=== PATIENT | female | born 1980 | race Caucasian/White ===

== ENCOUNTER 2017-12-16 12:30 | Emergency (ER) | payer OTHER ==
[~2017-12-16] VITALS: Ht 167.6 cm; Wt 104.3 kg
[~2017-12-16 12:30] MED LIST: BENTYL10 MG PO; LEXAPRO 10 MG T10 MG; NORCO 5-325 TA1 EACH PO; TORADOL 10 MG T10 MG PO; WELLBUTRIN SR150 MG; ZOFRAN ODT4 MG PO; ZOMIG ZMT2.5 MG PO
[2017-12-16] MEDS ORDERED: LEXAPRO 10 MG T10 MG PO (12:38)
[2017-12-16] MEDS ORDERED: NEURONTIN 300M300 M2 PO (12:39)
[2017-12-16 12:56] LABS: ABSOLUTE BASOPHILS 0.1 thou/uL (0.0-0.2); ABSOLUTE EOSINOPHILS 0.2 thou/uL (0.0-0.7); ABSOLUTE LYMPHOCYTES 2.5 thou/uL (0.8-5.3); ABSOLUTE MONOCYTES 0.6 thou/uL (0.0-1.2); ABSOLUTE NEUTROPHILS 4.6 thou/uL (1.6-8.1); BASOPHILS 1.3 %; EOSINOPHILS 2.3 %; HEMATOCRIT 37.1 % (37.0-47.0); HEMOGLOBIN 12.4 gm/dL (12.0-15.0); LYMPHOCYTES 31.3 %; MCHC 33.6 g/dL (28.0-37.0); MCV 95.4 fL (80.0-100.0); MONOCYTES 7.5 %; NUCLEATED RBCS 0 /100WBC; PLATELET COUNT* 235 thou/uL (150-400); POLYS 57.6 %; RBC 3.89 mil/uL (4.20-5.00); RDW-CV 12.6 % (10.5-14.5); WBC 8.1 thou/uL (4.0-11.0)
[2017-12-16 13:04] LABS: ANION GAP 5 mmol/L (7-16); BUN 11 mg/dL (7-18); CALCIUM 8.4 mg/dL (8.5-10.1); CHLORIDE 106 mmol/L (98-107); CO2 30 mmol/L (21-32); CREATININE 1.1 mg/dL (0.6-1.3); GLUCOSE 85 mg/dL (70-99); SODIUM 141 mmol/L (136-145)
[2017-12-16 13:07] LABS: PROTIME 10.3 Seconds (9.20-11.50)
[2017-12-16 13:23] LABS: ALBUMIN 3.5 g/dL (3.4-5.0); ALKALINE PHOSPHATASE 74 U/L (46-116); CK-MB MASS 0.5 ng/mL (<0.5-3.6); LIPASE 115 U/L (73-393); MAGNESIUM 1.7 mg/dL (1.8-2.4); NT-PRO BRAIN NAT PEPTIDE 55 pg/mL (<300); SGOT 20 U/L (15-37); SGPT 28 U/L (30-65); TOTAL BILIRUBIN 0.4 mg/dL (<0.1-1.0); TOTAL PROTEIN 7.5 g/dL (6.4-8.2); TROPONIN-I LEVEL <0.06 ng/mL (<0.06)
[2017-12-16 13:59] VITALS: BP 104/62
--- NOTE | 2017-12-16 18:21 | EKG ---
[place] [address] ELECTROCARDIOGRAM REPORT Name: VANESSA MAJANO Room: [facility]#: [id number] Admission: 12/16/17 Attend Phys: Discharge: 12/16/17 Date of : 78 Report #: [id number] THIS REPORT FOR: //name// [facility] ED Test Date: 2017-12-16 Test Time: 12:38:51 Pat Name: VANESSA MAJANO Department: Room: Gender: F [employer] Transportation Clerk: : 1980 Requested By: Jordan Chisholm Order Number: [id number] MD: Sam Crocker Measurements Intervals [place] Rate: 52 P: 40 AL: 112 QRS: 38 QRSD: 99 T: 24 QT: 403 QTc: 375 Interpretive Statements Sinus bradycardia Borderline short AL interval Low voltage, precordial leads Baseline wander in lead(s) I Compared to ECG 12/11/2012 22:40:16 rate slowed Electronically Signed On 12-16-2017 18:21:33 CDT by Sam Crocker [email or web address] <ELECTRONICALLY SIGNED> By: Sam Crocker MD, [facility] 12/16/17 1821 1238 1238 Sam Crocker MD, [facility] /EPI
== END 2017-12-16 14:00 | disposition home or self-care (01) ==
LOC: M.ERS 12:30
PROVIDERS: Family Medicine
DX: R07.89 Other chest pain (principal); F41.9 Anxiety disorder, unspecified; Z88.0 Allergy status to penicillin; Z88.1 Allergy status to other antibiotic agents; Z90.49 Acquired absence of other specified parts of digestive tract

== ENCOUNTER → 2019-08-19 | Day surgery (SDC) | payer BC ==
[~2019-08-19] MED LIST changes: +IBUPROFEN 800800 M1 PO; +LEXAPRO 10 MG T10 MG PO; +LEXAPRO20 MG PO; +NEURONTIN 300M300 M2 PO; +NORCO 5-325 TA1 EAC1 PO; +ZOMIG2.5 MG PO; +ZYRTEC10 M2 PO
--- NOTE | ~2019-08-19 | OP ---
[facility] [address] [place] [address] OPERATIVE REPORT Name: VANESSA MAJANO Room: [facility]#: [id number] Admission: 08/19/19 Attend Phys: Reta Turner DO Discharge: Date of : 78 Report #: [id number] THIS REPORT FOR: //name// cc: Bob Edmond MD, Tuongvan T. MD ~ THIS REPORT FOR: //name// CC: Reta Edmond DATE OF SERVICE: 08/19/2019 PREOPERATIVE DIAGNOSIS: Left chronic recalcitrant plantar fasciitis. POSTOPERATIVE DIAGNOSIS: Left chronic recalcitrant plantar fasciitis. PROCEDURE PERFORMED: Left endoscopic partial plantar fascia release. SURGEON: Reta Turner DO CREDIT CARD SPECIALIST: Jonathan Jackson DO ANESTHESIA: General with local. ESTIMATED BLOOD LOSS: 2 mL. SPECIMENS REMOVED: None. COMPLICATIONS: None. DRAINS: None. CONDITION OF THE PATIENT stable. DISPOSITION: PACU then to home. ANTIBIOTICS: 2 grams Ancef IV piggyback prior to procedure. TOURNIQUET TIME: Ten minutes at 300 mmHg. IMPLANTS: None. INDICATIONS: The patient is a very pleasant 39-year-old female who has been dealing with chronic plantar fasciitis for the last several months, even up to a year and has failed different conservative treatment options at this point. She has failed heel cups, calf stretching exercises, injections and the pain is [facility] [address] [place] [address] OPERATIVE REPORT Name: VANESSA MAJANO Room: [facility]#: [id number] Admission: 08/19/19 Attend Phys: Reta Turner DO Discharge: Date of : 78 Report #: [id number] affecting quality of life. Discuss surgical possibilities including partial plantar fascia release and discussed the risks, benefits, indications, and complications of this including but not limited to infection, wound healing complications, need for antibiotics, continued pain postoperatively. Need for repeat procedures, possibly. DVT, PE, complications with anesthesia and other possibilities. The patient demonstrated good understanding and wanted to proceed with surgery. Consent was signed prior to surgery. DESCRIPTION OF PROCEDURE: I met with the patient in the preoperative suite and the correct left foot was marked. The patient was transferred to the operating room and placed supine on a well-padded table. She was given general anesthetic. The left lower extremity was sterilely prepped and draped in standard fashion. At this point, surgical timeout was completed, indicating correct patient, operative site and procedure performed. All in the room were in agreement, we elected to proceed. We used fluoroscopy to yesica the incision location at the plantar fascia insertion on the plantar aspect of the calcaneus. The lower extremity was exsanguinated with Esmarch and tourniquet was insufflated. We made an incision with a 15 blade scalpel and then dissection was carried down to the plantar aspect of the plantar fascia and with a [place]on elevator followed by the Arthrex dilators. Next, the centerline Arthrex endoscopic soft tissue release, instrumentation was utilized and inserted through the incision. Good visualization of the entire plantar fascia both from laterally all the way to the medial aspect. At this point, using the device. The medial and central aspects of the plantar fascia were released in their entirety with good visualization of a complete release. The lateral band was maintained. Final images were taken, demonstrating a complete release. The wound was then thoroughly irrigated. Closed the incision with 3-0 nylon in a simple interrupted fashion. Dressings consisted of Xeroform, 4 x 4 gauze, ABDs, soft roll, posterior splint and Cresencio wrap. Needle and sponge counts were correct x 2 at the end of the procedure. The patient tolerated the procedure well and was transferred to PACU in stable condition. ATTESTATION: Dr. Turner was present throughout the entirety of the case. By: [id number] Turner DO /juno
[2019-08-19 06:50] LABS: HEMATOCRIT 39.9 % (37.0-47.0); HEMOGLOBIN 13.7 gm/dL (12.0-15.0)
== END | disposition home or self-care (01) ==
LOC: M.SUR 06:20
PROVIDERS: Orthopaedic Surgery
DX: M72.2 Plantar fascial fibromatosis (principal); F41.9 Anxiety disorder, unspecified; G43.909 Migraine, unspecified, not intractable, without status migrainosus; Z98.890 Other specified postprocedural states; Z79.899 Other long term (current) drug therapy; Z90.49 Acquired absence of other specified parts of digestive tract; Z88.0 Allergy status to penicillin; Z88.8 Allergy status to other drugs, medicaments and biological substances; Z11.59 Encounter for screening for other viral diseases